=== PATIENT | male | born 1995 | race Caucasian/White ===

== ENCOUNTER 2017-10-29 10:26 | Emergency (ER) | payer OTHER ==
[2017-10-29] MEDS: ACETAMINOPHEN 325 MG TAB PO (11:32)
[2017-10-29] MEDS: ONDANSETRON 4 MG ORAL DISINTEGRATING TAB (S0181) PO (11:32)
== END 2017-10-29 12:27 | disposition home or self-care (01) ==
LOC: M ED 10:26
DX: S09.90XA Unspecified injury of head, initial encounter (principal); V47.6XXA Car passenger injured in collision with fixed or stationary object in traffic accident, initial encounter; Y92.410 Unspecified street and highway as the place of occurrence of the external cause
CPT/HCPCS: 70450

== ENCOUNTER 2019-07-05 09:59 | Emergency (ER) | payer OTHER ==
[~2019-07-05] VITALS: Ht 182.9 cm; Wt 95.5 kg
[~2019-07-05 09:59] MED LIST: IBUP-1022 PO; ZOFR4TAB14 PO
[2019-07-05 10:50] LABS: HEMATOCRIT 44.8 % (42.0-52.0); HEMOGLOBIN 15.2 g/dl (13.5-17.5); MEAN CORPUSCULAR HEMOGLOBIN 29.8 pg (27.0-33.0); MEAN CORPUSCULAR HGB CONC 33.9 g/dl (32.0-36.5); MEAN CORPUSCULAR VOLUME 87.8 fl (80.0-96.0); PLATELET COUNT, AUTOMATED 178 10^3/uL (150-450); WHITE BLOOD COUNT 5.3 10^3/uL (4.0-10.0)
[2019-07-05 11:21] LABS: ACETAMINOPHEN LEVEL < 2.0 UG/ML (10.0-30.0); ALBUMIN 3.8 GM/DL (3.2-5.2); ALT/SGPT 19 U/L (12-78); BILIRUBIN,DIRECT 0.3 MG/DL (0.0-0.2); BILIRUBIN,TOTAL 1.6 MG/DL (0.2-1.0); BLOOD UREA NITROGEN 13 MG/DL (7-18); CALCIUM LEVEL 8.8 MG/DL (8.5-10.1); CARBON DIOXIDE LEVEL 29 MEQ/L (21-32); CHLORIDE LEVEL 107 MEQ/L (98-107); CREATININE FOR GFR 0.95 MG/DL (0.70-1.30); ETHYL ALCOHOL (ETHANOL) < 0.003 % (0.000-0.010); GLOMERULAR FILTRATION RATE > 60.0 (>60); GLUCOSE, FASTING 91 MG/DL (70-100); POTASSIUM SERUM 4.1 MEQ/L (3.5-5.1); SALICYLATE LEVEL < 1.7 MG/DL (5.0-30.0); SODIUM LEVEL 141 MEQ/L (136-145); TOTAL PROTEIN 6.4 GM/DL (6.4-8.2)
[2019-07-05 11:22] LABS: AMPHETAMINES LEVEL URINE NEGATIVE (NEGATIVE); BARBITURATES URINE NEGATIVE (NEGATIVE); BENZODIAZEPINES URINE NEGATIVE (NEGATIVE); CANNABINOIDS URINE NEGATIVE (NEGATIVE); COCAINE METABOLITE URINE NEGATIVE (NEGATIVE); METHADONE URINE NEGATIVE (NEGATIVE); OPIATES URINE NEGATIVE (NEGATIVE); PHENCYCLIDINE URINE NEGATIVE (NEGATIVE)
--- NOTE | 2019-07-05 13:05 | ED PDOC ---
Provider Note Phone consultation undertaken with this provider, the patient reportedly has chronic suicidal ideation with no significant changes, he had reportedly told a superior or he was brought to [facility] and that brought for to the ER for observation. When he'd arrived he had no further suicidality, he reports some alcohol use that seems to provoke him to talk about his suicidality to his superior which had prompted his admission. The behavioral health on post reports that no one failed to watch him over the weekend, however they were instructed that this is not standard of care and that if the patient does not pose an imminent threat to himself or others that he cannot be held against his will. Given the information given to me by the PSA worker, I do not believe this patient meets involuntary criteria as he is not demonstrated significant difference from his regular perhaps chronic baseline in terms of suicidality, he is not demonstrating how much fidelity or being significantly impaired from a mental health standpoint as he continues to work successfully. He declines voluntary admission and thus must be discharged in good olga WAYLON DE LA TORRE DO Jul 05, 2019 13:05
[2019-07-05 13:58] VITALS: BP 126/69
== END 2019-07-05 14:07 | disposition home or self-care (01) ==
LOC: EDBD 09:59 → M ED 09:59 → EDUNIT# 09:59 → M ED 14:07
DX: F32.9 Major depressive disorder, single episode, unspecified (principal); F43.0 Acute stress reaction
CPT/HCPCS: 36415; 80048; 80076; 80307; 84443; 85027; 99284; G0480